=== PATIENT | female | born 1995 | race African-American/Black ===

== ENCOUNTER 2018-05-03 13:45 | Emergency (ER) | payer SELFPAY ==
[~2018-05-03] VITALS: Ht 157.5 cm; Wt 67.7 kg
[2018-05-03] MEDS ORDERED: IBUPROFEN 600 MG TABLET PO ONE (15:15)
[2018-05-03] MEDS ORDERED: ACETAMINOPHEN 500 MG TABLET PO ONE (15:15)
[2018-05-03 16:08] VITALS: BP 115/62
== END 2018-05-03 16:23 | disposition home or self-care (01) ==
LOC: EMS 13:47
DX: S61.215A Laceration without foreign body of left ring finger without damage to nail, initial encounter (principal); S63.653A Sprain of metacarpophalangeal joint of left middle finger, initial encounter; S63.655A Sprain of metacarpophalangeal joint of left ring finger, initial encounter; S60.512A Abrasion of left hand, initial encounter; F12.90 Cannabis use, unspecified, uncomplicated; F17.210 Nicotine dependence, cigarettes, uncomplicated; Z88.0 Allergy status to penicillin; W18.39XA Other fall on same level, initial encounter; Y93.89 Activity, other specified; Y92.89 Other specified places as the place of occurrence of the external cause; Y99.8 Other external cause status
CPT/HCPCS: 99406

== ENCOUNTER 2018-11-26 10:43 | Emergency (ER) | payer MEDICAID ==
[~2018-11-26] VITALS: Ht 157.5 cm; Wt 58.2 kg
[2018-11-26] MEDS ORDERED: HYDROCODONE/ACETAMINOPHEN 5-325 MG TABLET PO ONE (11:30)
[2018-11-26 12:16] VITALS: BP 120/56
== END 2018-11-26 12:50 | disposition home or self-care (01) ==
LOC: EMS 10:44
DX: S00.83XA Contusion of other part of head, initial encounter (principal); S20.211A Contusion of right front wall of thorax, initial encounter; M79.621 Pain in right upper arm; F17.210 Nicotine dependence, cigarettes, uncomplicated; F12.90 Cannabis use, unspecified, uncomplicated; Z88.1 Allergy status to other antibiotic agents; W11.XXXA Fall on and from ladder, initial encounter; Y93.89 Activity, other specified; Y92.89 Other specified places as the place of occurrence of the external cause; Y99.8 Other external cause status
CPT/HCPCS: 70450; 99406

== ENCOUNTER 2019-06-04 15:48 | Emergency (ER) | payer MEDICAID ==
[~2019-06-04] VITALS: Ht 157.5 cm; Wt 59.1 kg
[2019-06-04] MEDS ORDERED: ONDANSETRON HCL 4 MG TABLET PO ONE (18:15)
[2019-06-04] MEDS ORDERED: HYDROCODONE/ACETAMINOPHEN 5-325 MG TABLET PO ONE (18:15)
[2019-06-04 19:27] VITALS: BP 119/72
== END 2019-06-04 19:59 | disposition home or self-care (01) ==
LOC: EMS 15:49
DX: M54.41 Lumbago with sciatica, right side (principal); F17.210 Nicotine dependence, cigarettes, uncomplicated; F12.90 Cannabis use, unspecified, uncomplicated; Z88.2 Allergy status to sulfonamides
CPT/HCPCS: 81025; 99283; 99406; Q0162